=== PATIENT | female | born 1975 | race Caucasian/White ===

== ENCOUNTER 2016-10-26 22:37 | Emergency (ER) | payer OTHER ==
[2016-10-26 22:58] VITALS: TEMP 98.5; BMI 27.4
[2016-10-26] MEDS ORDERED: SODIUM CHLORIDE 1,000 ML IV STA (23:17)
[2016-10-26 23:41] LABS: BASOPHIL 0.9 % (0-2.0); EOSINOPHIL 1.1 % (0-4.5); MCH 30.3 pg (25.7-33.7); MCHC 34.9 g/dl (32.0-36.0); MEAN PLT VOLUME 8.6 fl (7.5-11.1); NEUTROPHILS 55.5 % (42.8-82.8); PLATELET COUNT 324 K/MM3 (134-434); RDW 12.3 % (11.6-15.6); WHITE BLOOD COUNT 11.1 K/mm3 (4.0-10.0)
[2016-10-26 23:42] LABS: URINE APPEARANCE CLEAR; URINE BILIRUBIN NEGATIVE (NEGATIVE); URINE BLOOD NEGATIVE (NEGATIVE); URINE COLOR LTYELLOW; URINE GLUCOSE (UA) 3+ (NEGATIVE); URINE KETONE NEGATIVE (NEGATIVE); URINE LEUK ESTERASE NEGATIVE (NEGATIVE); URINE NITRITE NEGATIVE (NEGATIVE); URINE PROTEIN NEGATIVE (NEGATIVE); URINE UROBILINOGEN NEGATIVE mg/dL (0.2-1.0)
--- NOTE | 2016-10-26 23:49 | PDOC ---
History of Present Illness - General History Source: Patient Exam Limitations: No Limitations - History of Present Illness Initial Comments: 10/27/16 00:26 Patient is a 41 year old female with pmhx of diabetes who presents to the ED with hyperglycemia, headache and dizziness. Patient states that this morning she woke up with a headache and dizziness which she describes as the room spinning. She states that she measured her BP to be 154/109. Patient notes that her blood glucose was 525 at home. Patient notes that she took her medication. Patient reports nausea and 1 episode of vomiting at the time. She states that she used to be on insulin but was taken off because her insulin was regulated so she was placed on pills. PSH - knee sx FH - both maternal and paternal uncles with DM SH - non smoker, no alcohol use no IVDU. <Ivory Sheth - Last Filed: 10/27/16 00:26> <Kenia Yin - Last Filed: 10/27/16 02:45> - General Chief Complaint: Blood Sugar Problem Stated Complaint: BLOOD SUGAR PROBLEM Time Seen by Provider: 10/26/16 23:17 Past History <Ivory Sheth - Last Filed: 10/27/16 00:26> - Past Medical History HTN: Yes - Psycho/Social/Smoking Cessation Hx Suicidal Ideation: No Smoking History: Never smoked Have you smoked in the past 12 months: No Information on smoking cessation initiated: No Hx Alcohol Use: No Drug/Substance Use Hx: No <Kenia Yin - Last Filed: 10/27/16 02:45> - Past Medical History Allergies/Adverse Reactions: Allergies Allergy/AdvReac Type Severity Reaction Status Date / Time No Known Allergies Allergy Verified 10/26/16 23:00 Home Medications: Ambulatory Orders Lisinopril 5 mg PO DAILY 10/26/16 Gemfibrozil [Lopid -] 600 mg PO BID 10/27/16 Glipizide [Glucotrol] 20 mg PO DAILY 10/27/16 Metformin HCl [Glucophage] 1,000 mg PO BID 10/27/16 Ranitidine HCl [Zantac] 150 mg PO BID 10/27/16 Review of Systems - Review of Systems Able to Perform ROS?: Yes Comments:: 10/27/16 00:26 CONSTITUTIONAL: Absent: fever, chills, diaphoresis, generalized weakness, malaise, loss of appetite HEENT: Absent: rhinorrhea, nasal congestion, throat pain, throat swelling, difficulty swallowing, mouth swelling, ear pain, eye pain, visual Changes CARDIOVASCULAR: Absent: chest pain, syncope, palpitations, irregular heart rate, lightheadedness , peripheral edema RESPIRATORY: Absent: cough, shortness of breath, dyspnea with exertion, orthopnea, wheezing, stridor, hemoptysis GASTROINTESTINAL: Absent: abdominal pain, abdominal distension, nausea, vomiting, diarrhea, constipation, melena, hematochezia GENITOURINARY: Absent: dysuria, frequency, urgency, hesitancy, hematuria, flank pain, genital pain MUSCULOSKELETAL: Absent: myalgia, arthralgia, joint swelling SKIN: Absent: rash, itching, pallor HEMATOLOGIC/IMMUNOLOGIC: Absent: easy bleeding, easy bruising, lymphadenopathy, frequent infections ENDOCRINE: Absent: unexplained weight gain, unexplained weight loss, heat intolerance, cold intolerance NEUROLOGIC: Present: headache, dizziness. Absent: focal weakness or paresthesias, unsteady gait, seizure, mental status changes, bladder or bowel incontinence PSYCHIATRIC: Absent: anxiety, depression, suicidal or homicidal ideation, hallucinations. <Ivory Sheth - Last Filed: 10/27/16 00:26> *Physical Exam - Vital Signs Last Vital Signs Temp Pulse Resp BP Pulse Ox 98.5 F 84 18 125/83 98 10/26/16 22:55 10/26/16 22:55 10/26/16 22:55 10/26/16 22:55 10/26/16 22:55 - Physical Exam Comments: 10/27/16 00:27 GENERAL: Well developed, well nourished. Awake and alert. No acute distress. HEENT: Normocephalic, atraumatic. PERRLA, EOMI. No conjunctival pallor. Sclera are non- icteric. Moist mucous membranes. Oropharynx is clear. NECK: Supple. Full ROM. No JVD. Carotid pulses 2+ and symmetric, without bruits. No thyromegaly. No lymphadenopathy. CARDIOVASCULAR: Regular rate and rhythm. No murmurs, rubs, or gallops. Distal pulses are 2+ and symmetric. PULMONARY: No evidence of respiratory distress. Lungs clear to auscultation bilaterally. No wheezing, rales or rhonchi. ABDOMINAL: Soft. Non-tender. Non-distended. No rebound or guarding. No organomegaly. Normoactive bowel sounds. MUSCULOSKELETAL Normal range of motion at all joints. No bony deformities or tenderness. No CVA tenderness. EXTREMITIES: No cyanosis. No clubbing. No edema. No calf tenderness. SKIN: Warm and dry. Normal capillary refill. No rashes. No jaundice. NEUROLOGICAL: Alert, awake, appropriate. Cranial nerves 2-12 intact. Gait is normal without ataxia. PSYCHIATRIC: Cooperative. Good eye contact. Appropriate mood and affect. <Ivory Sheth - Last Filed: 10/27/16 00:26> - Vital Signs Last Vital Signs Temp Pulse Resp BP Pulse Ox 98.5 F 84 18 125/83 98 10/26/16 22:55 10/26/16 22:55 10/26/16 22:55 10/26/16 22:55 10/26/16 22:55 <Kenia Yin - Last Filed: 10/27/16 02:45> ED Treatment Course - LABORATORY CBC & Chemistry Diagram: 10/26/16 23:30 10/26/16 23:30 - ADDITIONAL ORDERS Additional order review: Laboratory Results 10/27/16 10/26/16 10/26/16 00:10 23:30 23:30 INR Puncture Site Right brachial ABG pH 7.47 H ABG pCO2 at Pt Temp 36.1 ABG pO2 at Pt Temp 83.0 ABG HCO3 25.7 ABG O2 Sat (Measured) 98.0 ABG O2 Content 16.0 ABG Base Excess 2.6 H Gil Test Positive O2 Delivery Device Ra Oxygen Flow Rate No PEEP 0.0 Sodium 132 L Potassium 4.3 Chloride 95 L Carbon Dioxide 31 Anion Gap 6 L BUN 11 Creatinine 0.8 Creat Clearance w eGFR > 60 Random Glucose 459 H* Calcium 9.3 Total Bilirubin 0.5 AST 18 ALT 41 Alkaline Phosphatase 117 Total Protein 7.3 Albumin 3.7 Serum , Qual Negative Urine Color Urine Appearance Urine pH Urine Protein Urine Glucose (UA) Urine Ketones Urine Blood Urine Nitrite Urine Bilirubin Urine Urobilinogen Ur Leukocyte Esterase 10/26/16 10/26/16 23:30 23:30 INR 0.94 Puncture Site ABG pH ABG pCO2 at Pt Temp ABG pO2 at Pt Temp ABG HCO3 ABG O2 Sat (Measured) ABG O2 Content ABG Base Excess Gil Test O2 Delivery Device Oxygen Flow Rate PEEP Sodium Potassium Chloride Carbon Dioxide Anion Gap BUN Creatinine Creat Clearance w eGFR Random Glucose Calcium Total Bilirubin AST ALT Alkaline Phosphatase Total Protein Albumin Serum , Qual Urine Color Ltyellow Urine Appearance Clear Urine pH 7.0 Urine Protein Negative Urine Glucose (UA) 3+ H Urine Ketones Negative Urine Blood Negative Urine Nitrite Negative Urine Bilirubin Negative Urine Urobilinogen Negative Ur Leukocyte Esterase Negative 10/26/16 23:30 RBC 4.37 MCV 87.0 MCHC 34.9 RDW 12.3 MPV 8.6 Neutrophils % 55.5 Lymphocytes % 38.3 Monocytes % 4.2 Eosinophils % 1.1 Basophils % 0.9 - Medications Given in the ED: ED Medications Discontinued Medications Generic Name Dose Route Start Last Admin Trade Name Freq PRN Reason Stop Dose Admin Sodium Chloride 1,000 mls @ 1,000 mls/hr 10/26/16 23:17 10/26/16 23:37 Normal Saline - IV 10/27/16 00:16 1,000 mls/hr .Q1H STA Administration <Ivory Sheth - Last Filed: 10/27/16 00:26> - LABORATORY CBC & Chemistry Diagram: 10/26/16 23:30 10/26/16 23:30 - ADDITIONAL ORDERS Additional order review: Laboratory Results 10/26/16 23:30 Urine Color Ltyellow Urine Appearance Clear Urine pH 7.0 Urine Protein Negative Urine Glucose (UA) 3+ H Urine Ketones Negative Urine Blood Negative Urine Nitrite Negative Urine Bilirubin Negative Urine Urobilinogen Negative Ur Leukocyte Esterase Negative 10/26/16 23:30 RBC 4.37 MCV 87.0 MCHC 34.9 RDW 12.3 MPV 8.6 Neutrophils % 55.5 Lymphocytes % 38.3 Monocytes % 4.2 Eosinophils % 1.1 Basophils % 0.9 <Kenia Yin - Last Filed: 10/27/16 02:45> Medical Decision Making - Medical Decision Making 10/27/16 02:41 41-year-old female who is a nonsmoker diabetic for the past 5 years. Has been told by her primary care physician that she needs to start insulin. She came in this evening because she felt lightheaded and her glucose was 459. She has no nausea or vomiting. She is acetone negative. Patient will receive 1000 mg of her glucophage and she was discharged to follow up with her PCP <Kenia Yin - Last Filed: 10/27/16 02:45> *DC/Admit/Observation/Transfer - Attestations Scribe Attestion: 10/27/16 00:27 Documentation prepared by KEYLA Barker, acting as medical support assistant for Kenia Yin MD. <Ivory Sheth - Last Filed: 10/27/16 00:26> <Kenia Yin - Last Filed: 10/27/16 02:45> Diagnosis at time of Disposition: Hyperglycemia Hypertension Qualifiers: Hypertension type: essential hypertension Qualified Code(s): I10 - Essential ( primary) hypertension - Discharge Dispostion Disposition: HOME Condition at time of disposition: Stable - Patient Instructions Printed Discharge Instructions: DI for Hyperglycemia -- Adult Additional Instructions: PLEASE FOLLOW UP WITH YOUR PHYSICIAN THIS WEEK
[2016-10-26 23:56] LABS: INR 0.94 (0.82-1.09); PROTHROMBIN TIME (PATIENT) 10.3 SEC (9.98-11.88)
[2016-10-27 00:10] LABS: ALLENS TEST POSITIVE; ART PUNCT SITE RIGHT BRACHIAL; ARTERIAL BLOOD GAS BASE EXCESS 2.6 meq/l (-2-2); ARTERIAL BLOOD GAS HCO3 25.7 meq/L (22-26); ARTERIAL BLOOD GAS pH 7.47 (7.35-7.45); PT. ON O2? NO
[2016-10-27 00:11] LABS: TYPE OF O2 RA
[2016-10-27 00:15] LABS: ALBUMIN 3.7 g/dl (3.4-5.0); ALK PHOS 117 U/L (45-117); ANION GAP 6 (8-16); BILIRUBIN,TOTAL 0.5 mg/dL (0.2-1.0); CALCIUM 9.3 mg/dL (8.5-10.1); CO2 31 mmol/L (21-32); CREATININE 0.8 mg/dL (0.55-1.02); TOT PROT 7.3 g/dl (6.4-8.2)
[2016-10-27 00:19] LABS: SGOT/AST 18 U/L (15-37); SGPT/ALT 41 U/L (12-78)
[2016-10-27 00:20] LABS: GLUCOSE,RANDOM 459 mg/dL (74-106)
[2016-10-27 02:44] VITALS: BP 147/95; PULSE 70
[2016-10-27] MEDS ORDERED: metFORMIN HCL 500 MG TABLET (FP) ONE (02:46)
== END 2016-10-27 02:51 | disposition home or self-care (01) ==
LOC: JER 22:37
PROC: 3E0337Z Introduction of Electrolytic and Water Balance Substance into Peripheral Vein, Percutaneous Approach (ICD-10-PCS; principal; 2016-10-26)
DX: E11.65 Type 2 diabetes mellitus with hyperglycemia (principal); Z79.84 Long term (current) use of oral hypoglycemic drugs; I10 Essential (primary) hypertension
CPT/HCPCS: 36415; 36600; 80053; 81003; 82009; 82803; 84703; 85025; 85610; 99283-25

== ENCOUNTER 2017-07-20 14:18 | Emergency (ER) | payer OTHER ==
[2017-07-20 14:26] VITALS: PULSE 94; TEMP 98.5; BMI 26.6
[2017-07-20] MEDS ORDERED: KETOROLAC TROMETHAMINE 30 MG/1 ML VIAL IM ONE (14:29)
--- NOTE | 2017-07-20 14:29 | PDOC ---
Rapid Medical Evaluation Time Seen by Provider: 07/20/17 14:25 Medical Evaluation: Allergies Allergy/AdvReac Type Severity Reaction Status Date / Time No Known Allergies Allergy Verified 10/26/16 23:00 07/20/17 14:25 I have performed a brief in-person evaluation of the patient. The patient presents with a chief complaint of : neck and back pain since yesterday Denies injury or heavy lifting Pertinent physical exam findings. NAD right side of neck tender unable to completely turn to right side no mid cervical spine tenderness I have ordered the following analgesia, urine This patient will proceed to the ED for further evaluation.
[2017-07-20 14:30] VITALS: BP 156/81
[2017-07-20] MEDS ORDERED: CYCLOBENZAPRINE HCL 10 MG TABLET (FP) PO ONE (14:30)
--- NOTE | 2017-07-20 15:18 | PDOC ---
History of Present Illness - General Chief Complaint: Back Pain Stated Complaint: BACK PAIN Time Seen by Provider: 07/20/17 14:25 History Source: Patient Exam Limitations: No Limitations - History of Present Illness Initial Comments: 07/20/17 15:12 42-year-old woman without significant past medical history presents emergency Department with right lateral neck pain for 2 days after waking up. Patient is been taking [id number] medications with limited relief of pain. Patient denies any trauma, resident care supervisor or massages. Past History - Past Medical History Allergies/Adverse Reactions: Allergies Allergy/AdvReac Type Severity Reaction Status Date / Time No Known Allergies Allergy Verified 07/20/17 14:26 Home Medications: Ambulatory Orders Cyclobenzaprine HCl [Flexeril 10 mg] 10 mg PO BID PRN #30 tablet 07/20/17 Insulin Glargine,Hum.rec.anlog [Lantus] 40 unit SQ ASDIR 07/20/17 HTN: Yes - Suicide/Smoking/Psychosocial Hx Smoking History: Never smoked Have you smoked in the past 12 months: No Hx Alcohol Use: No Drug/Substance Use Hx: No Review of Systems - Review of Systems Able to Perform ROS?: Yes Is the patient limited [place] proficient: No Constitutional: No: Symptoms Reported HEENTM: Yes: See HPI Respiratory: No: Symptoms reported Cardiac (ROS): No: Symptoms Reported ABD/GI: No: Symptoms Reported : No: Symptoms Reported Musculoskeletal: No: Symptoms Reported Integumentary: No: Symptoms Reported Neurological: No: Symptoms reported *Physical Exam - Vital Signs Last Vital Signs Temp Pulse Resp BP Pulse Ox 98.5 F 94 H 20 156/81 100 07/20/17 14:23 07/20/17 14:23 07/20/17 14:23 07/20/17 14:23 07/20/17 14:23 - Physical Exam General Appearance: Yes: Appropriately Dressed. No: Apparent Distress Neck: positive: Decreased range of motion (decreased right rotational ROM 2/2 pain), Tender lateral (right lateral muscle spasm of SCM) Respiratory/Chest: positive: Lungs Clear, Normal Breath Sounds. 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 Patient was observed speaking on the phone laughing and talking with her family. Patient is requesting discharge at this time. I will give the patient prescription for Flexeril and patient verbalized understanding of NSAID use to control pain. *DC/Admit/Observation/Transfer Diagnosis at time of Disposition: Torticollis, acquired - Discharge Dispostion Disposition: HOME Condition at time of disposition: Stable - Prescriptions Prescriptions: Cyclobenzaprine HCl [Flexeril 10 mg] 10 mg PO BID PRN #30 tablet PRN Reason: Muscle Spasms - Referrals - Patient Instructions Additional Instructions: Rest, no heavy lifting or exercise until pain is resolved Hot soaks to neck and low back as often as possible/hot showers or Jacuzzis No massage or therapy until spasm is gone Continue ibuprofen 2-200 mg tablets every 6 hours for the next 3 days then as needed for pain and swelling flexeril 10 mg every 8 hours as needed for spasm If not significant improvement within 24 hours with medication and rest regime, followup with private physician for change in medications and /or therapy. - Post Discharge Activity Forms/Work/School Notes: Back to Work
[2017-07-20] MEDS ORDERED: KETOROLAC TROMETHAMINE 30 MG/1 ML VIAL ONE (15:52)
[2017-07-20] MEDS ORDERED: CYCLOBENZAPRINE HCL 10 MG TABLET (FP) ONE (15:55)
== END 2017-07-20 16:52 | disposition home or self-care (01) ==
LOC: JERFT 14:18
PROC: 3E0233Z Introduction of Anti-inflammatory into Muscle, Percutaneous Approach (ICD-10-PCS; principal; 2017-07-20)
DX: M43.6 Torticollis (principal); I10 Essential (primary) hypertension
CPT/HCPCS: 84703; 96372; 99281-25

== ENCOUNTER 2018-10-05 17:58 | Emergency (ER) | payer OTHER | END 2018-10-05 23:47 | disposition home or self-care (01) | LOC: JER 17:58 ==